=== PATIENT | female | born 1955 | race Caucasian/White ===

== ENCOUNTER → 2022-01-11 | Outpatient (CLI) | payer MEDICARE ==
[2022-01-11 23:23] LABS: BASOPHIL % 0.2 % (0.0-0.2); EOSINOPHIL # 0.1 10^3/uL (0.0-0.2); EOSINOPHIL % 1.1 % (0.0-5.0); LYMPHOCYTES # 1.69 10^3/uL1 (1.0-4.8); LYMPHOCYTES % 25.4 % (24.0-44.0); MEAN CORP HGB 34.4 pg (26-34); MONOCYTES # 0.8 10^3/uL (0.3-0.8); MONOCYTES % 11.4 % (5.0-12.0); NEUTROPHIL # 4.1 10^3/uL (1.8-7.7); NEUTROPHILS % 60.8 % (41.0-85.0); PLATELET COUNT 215 10^3/uL (150-400); RED CELL DISTRIBUTION WIDTH 18.2 % (11.5-14.5)
== END | disposition home or self-care (01) ==
LOC: NPLAB 23:06
PROVIDERS: ATTEND Family Medicine
DX: I10 Essential (primary) hypertension (principal); E87.6 Hypokalemia; E87.1 Hypo-osmolality and hyponatremia; E46 Unspecified protein-calorie malnutrition
CPT/HCPCS: 36415; 80053; 80061; 82306; 83036; 84443; 85025

== ENCOUNTER → 2022-01-14 | Outpatient (CLI) | payer MEDICARE ==
[2022-01-14 15:27] LABS: BASOPHIL % 0.2 % (0.0-0.2); EOSINOPHIL # 0.1 10^3/uL (0.0-0.2); EOSINOPHIL % 1.3 % (0.0-5.0); LYMPHOCYTES # 1.68 10^3/uL1 (1.0-4.8); LYMPHOCYTES % 18.8 % (24.0-44.0); MEAN CORP HGB 34.3 pg (26-34); MONOCYTES # 0.9 10^3/uL (0.3-0.8); MONOCYTES % 9.8 % (5.0-12.0); NEUTROPHIL # 6.1 10^3/uL (1.8-7.7); NEUTROPHILS % 68.6 % (41.0-85.0); PLATELET COUNT 239 10^3/uL (150-400); RED CELL DISTRIBUTION WIDTH 18.5 % (11.5-14.5)
[2022-01-14 16:11] LABS: CARBON DIOXIDE 31.5 mmol/L (20.0-32)
== END | disposition home or self-care (01) ==
LOC: NPLAB 14:45
PROVIDERS: ATTEND Family Medicine
DX: I10 Essential (primary) hypertension (principal); J44.9 Chronic obstructive pulmonary disease, unspecified; E46 Unspecified protein-calorie malnutrition; R60.9 Edema, unspecified
CPT/HCPCS: 36415; 80053; 85025

== ENCOUNTER → 2022-01-21 | Outpatient (CLI) | payer MEDICARE ==
[2022-01-21 17:03] LABS: BASOPHIL % 0.5 % (0.0-0.2); EOSINOPHIL # 0.1 10^3/uL (0.0-0.2); EOSINOPHIL % 1.7 % (0.0-5.0); LYMPHOCYTES # 1.75 10^3/uL1 (1.0-4.8); LYMPHOCYTES % 27.3 % (24.0-44.0); MEAN CORP HGB 33.9 pg (26-34); MONOCYTES # 0.7 10^3/uL (0.3-0.8); MONOCYTES % 10.9 % (5.0-12.0); NEUTROPHIL # 3.7 10^3/uL (1.8-7.7); NEUTROPHILS % 58.2 % (41.0-85.0); PLATELET COUNT 237 10^3/uL (150-400); RED CELL DISTRIBUTION WIDTH 17.1 % (11.5-14.5)
[2022-01-21 17:18] LABS: CARBON DIOXIDE 39.8 mmol/L (20.0-32)
== END | disposition home or self-care (01) ==
LOC: NPLAB 16:09
PROVIDERS: ATTEND Family Medicine
DX: I10 Essential (primary) hypertension (principal); J44.9 Chronic obstructive pulmonary disease, unspecified; E87.6 Hypokalemia; E46 Unspecified protein-calorie malnutrition
CPT/HCPCS: 36415; 80053; 85025

== ENCOUNTER → 2022-01-28 | Outpatient (CLI) | payer MEDICARE ==
[2022-01-28 16:21] LABS: BASOPHIL % 0.6 % (0.0-0.2); EOSINOPHIL # 0.1 10^3/uL (0.0-0.2); EOSINOPHIL % 2.2 % (0.0-5.0); LYMPHOCYTES # 2.04 10^3/uL1 (1.0-4.8); LYMPHOCYTES % 31.6 % (24.0-44.0); MEAN CORP HGB 34.6 pg (26-34); MONOCYTES # 0.9 10^3/uL (0.3-0.8); MONOCYTES % 13.9 % (5.0-12.0); NEUTROPHIL # 3.3 10^3/uL (1.8-7.7); NEUTROPHILS % 50.3 % (41.0-85.0); PLATELET COUNT 169 10^3/uL (150-400); RED CELL DISTRIBUTION WIDTH 16.4 % (11.5-14.5)
[2022-01-28 16:34] LABS: CARBON DIOXIDE 37.3 mmol/L (20.0-32)
== END | disposition home or self-care (01) ==
LOC: NPLAB 13:13
PROVIDERS: ATTEND Family Medicine
DX: S72.001D Fracture of unspecified part of neck of right femur, subsequent encounter for closed fracture with routine healing (principal); I10 Essential (primary) hypertension; M19.079 Primary osteoarthritis, unspecified ankle and foot; J44.9 Chronic obstructive pulmonary disease, unspecified; X58.XXXD Exposure to other specified factors, subsequent encounter
CPT/HCPCS: 36415; 80053; 85025

== ENCOUNTER → 2022-02-04 | Outpatient (CLI) | payer MEDICARE, MEDICAID ==
[2022-02-04 19:26] LABS: BASOPHIL % 0.4 % (0.0-0.2); EOSINOPHIL % 0.3 % (0.0-5.0); LYMPHOCYTES # 0.87 10^3/uL1 (1.0-4.8); MEAN CORP HGB 34.1 pg (26-34); MONOCYTES # 0.6 10^3/uL (0.3-0.8); MONOCYTES % 8.5 % (5.0-12.0); NEUTROPHILS % 75.1 % (41.0-85.0); PLATELET COUNT 189 10^3/uL (150-400); RED CELL DISTRIBUTION WIDTH 15.3 % (11.5-14.5)
[2022-02-04 19:36] LABS: CARBON DIOXIDE 32.7 mmol/L (20.0-32)
== END | disposition home or self-care (01) ==
LOC: NPLAB 18:50
PROVIDERS: ATTEND Family Medicine
DX: I10 Essential (primary) hypertension (principal); J44.9 Chronic obstructive pulmonary disease, unspecified; E46 Unspecified protein-calorie malnutrition; M19.079 Primary osteoarthritis, unspecified ankle and foot
CPT/HCPCS: 36415; 80053; 85025